=== PATIENT | female | born 1960 | race Caucasian/White ===

== ENCOUNTER 2017-05-05 12:11 | Inpatient (IN) ==
[2017-05-05 13:21] LABS: Basophils % 0.6 % (0.0-0.8); Eosinophils # 0.4 10*3/uL (0.0-0.87); Eosinophils % 5.6 % (0.00-10.9); Hematocrit 40.2 VOL% (35.7-47.0); Hemoglobin 13.9 GM/DL (12.0-16.0); Immature Granulocytes % 0.4 %; Immature Granulocytes Absolute 0.03 #; Lymphocytes # 2.3 10*3/uL (1.4-4.0); Lymphocytes % 32.4 % (21.3-54.2); Mean Corpuscular HGB Conc 34.6 GM/DL (32-36); Mean Corpuscular Hemoglobin 32 PG (27-34); Mean Corpuscular Volume 91.6 FL (87-102); Mean Platelet Volume 11.2 FL (9.6-12.0); Monocytes # 0.4 10*3/uL (0.11-0.8); Monocytes % 5.1 % (1.7-12.7); Neutrophils % 55.9 % (38.7-73.9); Platelet Count 232 T/CUMM (130-400); Red Blood Count 4.39 MC/CUMM (3.8-5.5); Red Cell Distribution Width 11.9 % (9.3-17.3); White Blood Count 7.2 T/CUMM (4-12)
[2017-05-05 13:43] LABS: Albumin 3.5 G/DL (3.4-5.0); Bilirubin,Total 0.4 MG/DL (0.2-1.0); Calcium 8.9 MG/DL (8.5-10.1); Osmolality,Calculated 277.4 MOS/KG (273-304); Potassium 4.3 MMOL/L (3.5-5.1); Total Protein 6.7 G/DL (6.4-8.3)
[2017-05-05 13:51] LABS: Apearance,Urine CLEAR (Clear); Bilirubin,Urine Negative (Negative); Blood, Urine Negative (Negative); Glucose,Urine (UA) Negative (Negative); Ketones,Urine Negative (Negative); Mucus,Urine Occasional /LPF (Occasional); Nitrite,Urine Negative (Negative); Protein,Urine Negative; RBC,Urine <1 /HPF (0-4); Squamous Epithelial Cell,Urine Occasional /HPF (0-10); Urine Color Straw (Yellow); Urine Specific Gravity 1.003 (1.001-1.035); Urine Urobilinogen < 2.0 EU/DL (0.2-1.0); WBC,Urine <1 /HPF (0-6)
[2017-05-05] MEDS ORDERED: SODIUM CHLORIDE 0.9% 1,000 ML IV STA (14:04)
[2017-05-05] MEDS ORDERED: ONDANSETRON 4 MG/2 ML VIAL IV STA (14:07)
[2017-05-05] MEDS ORDERED: ONDANSETRON 4 MG/2 ML VIAL ONE (14:10)
--- NOTE | 2017-05-05 14:19 | Ultrasound Report ---
Exam: US gallbladder Date:05/05/2017 1:23 PM Indication: Nausea right upper quadrant back pain abdominal pain Comparison: None Findings: Liver: 14 cm with no focal abnormalities. The hepatic and portal veins are patent. Gallbladder: Normal size and shape without obvious stones however positive sonographic Hopkins sign is present. Wall thickness is 1.5 mm which is normal CBD: 4 mm Pancreas: Visualized portion of pancreas is unremarkable. Kidneys Right kidney: 11.0 x 4.5 x 4.3 cm. Mild hydronephrosis is present. This appears chronic similar to prior studies. Ascites: None Impression: 1. Chronic hydronephrosis right renal collecting system with moderate hydronephrosis present. 2. No obvious cholelithiasis or acute cholecystitis present.. Some tenderness is present over the gallbladder with positive sonographic Hopkins sign If additional imaging is warranted hepatobiliary imaging may be beneficial with nuclear medicine and ejection fraction of the gallbladder Ultrasound images were stored and captured PROCEDURE INTERPRETED AT [facility] DEPARTMENT OF RADIOLOGY Final Report Signed by: Dr. Dean Temple
[2017-05-05 14:26] LABS: Troponin I Only < 0.015 NG/ML (0.00-0.045)
--- NOTE | 2017-05-05 14:31 | XRay Report ---
2 view chest 05/05/2017 2: 26 PM Indication: Chest wall and scapular pain Comparison: Not available Findings: Cardiomediastinal contours are normal. Lungs are clear bilaterally. . No acute osseous abnormalities. Visualized upper abdomen demonstrates no acute pathology. Impression: Normal chest PROCEDURE INTERPRETED AT [facility] DEPARTMENT OF RADIOLOGY Final Report Signed by: Luis Landin MD
--- NOTE | 2017-05-05 15:03 | Emergency Department Note ---
Arrival - Arrival Chief Complaint: Non-Specific Stated Complaint: back pain, RUQ pain, near syncope ED Nursing Triage Note: Patient with a complaint of right upper quadrant pain since Thursday; she reports diarrhea which resolved Thursday; she [place] [facility] [place] Grecia Bowers; she reports ambulating out of the examine room in the doe when she experienced a near syncopal episode. She reports "room spinning" and diaphoresis prior to the near syncopal episdode. Mode of Arrival: Stretcher Source: Patient Time Seen by Provider: 05/05/17 12:56 - History of Present Illness HPI Narrative: 57 y/o female presents to the ER complaining of nausea, dizziness, diaphoresis, and RUQ abdominal pain. Symptoms started on Thursday. She was seen by Grecia Bowers today at [facility] and had a near syncopal episode when she stood up to walk to the lab. When this episode occurred [facility] [place] EMS and patient was brought to the Emergency Room for further evaluation. Denies fever, vomiting, Chest pain, or diaphoresis. Past medical history significant for appendectomy, chronic pain , and interstitial cystitis. Primary Care Physician: Dr. Pascual. Onset (ago): day(s) (2) Severity: mild Quality: cramping Allergies/Adverse Reactions: Allergies Allergy/AdvReac Type Severity Reaction Status Date / Time sulfacetamide Allergy ANAPHYLAXIS Verified 05/05/17 13:16 [From Sulfamide] Review of System - Review of System 12 point system: reviewed and no additional remarkable complaints except as stated - Review of System Gastrointestinal: Present: abdominal pain (RUQ ), nausea, diarrhea Neurological: Present: other (dizziness/near syncope ) Medical,Surgical,& Family Hx - Medical History Respiratory: History of: Respiratory Problems (allergic rhinitis) Genitourinary: History of: Recurring Urinary Tract Infections (interstitial cystitis) - Surgical History Abdominal Surgeries: Surgical HX of: Appendectomy (ag of 14) - Family History Family History: Reports;: Family Cancer (thyroid cancer; paternal aunts breast cancer), Family Heart Disease (father), Family Hypertension (father), Family Stroke (father) - Social History Smoking Status: Never smoker Frequency of Alcohol Use: None Type of Drug Use: None Exam Vital Signs: Vital Signs Temperature 97.7 F 05/05/17 12:13 Pulse Rate 76 05/05/17 14:24 Respiratory Rate 20 05/05/17 12:13 Blood Pressure 131/81 05/05/17 14:24 O2 Sat by Pulse Oximetry 100 05/05/17 12:13 - General General appearance: alert, in no apparent distress - Eye Eye exam: Present: PERRL, EOMI - ENT ENT exam: Present: normal exam, normal oropharynx, mucous membranes moist - Chest Chest inspection: Present: normal inspection - Respiratory Respiratory exam: Present: normal lung sounds bilaterally - Cardiovascular Cardiovascular exam: Present: regular rate, normal rhythm, normal heart sounds - Abdominal Exam Abdominal exam: Present: soft, tenderness (RUQ ), normal bowel sounds, Hopkins's sign (positive ) - Extremities Exam Extremities exam: Present: normal inspection, full ROM - Back Exam Back exam: Absent: CVA tenderness (R), CVA tenderness (L) - Neurological Exam Neurological exam: Present: alert, oriented X3, CN II-XII intact, normal gait, reflexes normal. Absent: motor sensory deficit - Psychiatric Psychiatric exam: Present: normal affect, normal mood - Skin Skin exam: Present: warm, dry Course Course Narrative: Hospitalist group notified of Consult. - Consultations Consultation #1: Dr Barrios Time: 15:05 (Will order a Hida Scan ) Consultation #2: Dr. Barrios Time: 17:45 (Will admit to Dr. Barrios and consult Hospitalist ) Results - Labs CBC & BMP: 05/05/17 13:00 05/05/17 13:00 Lab Results: I have reviewed the patients labs - EKG EKG results: WNL - Impressions HIDA scan: Cholecystitis - Diagnostic Findings Procedure: Chest x-ray: image reviewed by me, report reviewed by me (WNL ), Ultrasound: image reviewed by me, report reviewed by me (RUQ: see dictated report. ) Disposition Clinical Impression: Cholecystitis, Nausea & vomiting Case discussed with: patient Disposition: Still a Patient Condition: Stable
--- NOTE | 2017-05-05 16:56 | Nuclear Medicine Report ---
Hepatobiliary Scan Date Performed: May 05, 2017 at 0604 hours Radiopharmaceutical: 5 mCi Tc-99m Mebrofenin I.V. Clinical Information: 57-year-old female with worsening abdominal pain Comparison: Gallbladder performed same date 1346 hours Technique: Sequential plain are 5 minute imaging obtained of the abdomen per routine hepatobiliary protocol Findings: Diffuse prompt uptake throughout the liver parenchyma with visualization of the common bile duct and gallbladder at the 15-20 minute interval. Bowel activity demonstrated at 20-25 minutes. Conclusion: Normal HIDA scan PROCEDURE INTERPRETED AT [facility] DEPARTMENT OF RADIOLOGY Final Report Signed by: Luis Landin MD
--- NOTE | 2017-05-05 16:59 | Order Completion Report ---
See report scanned to EMR
--- NOTE | 2017-05-05 18:46 | Hospitalist Consult Note ---
Assessment and Plan (1) Nausea & vomiting Status: Acute Assessment and plan: lap astrid in am Current Visit: Yes (2) Syncope Status: Acute Assessment and plan: orthostatic NS bolus in Er, repeat bolus Current Visit: Yes (3) Hydronephrosis, right Status: Acute Assessment and plan: cr normal, chronic found on US, outpatient Urology Current Visit: Yes History of Present Illness - Data of Consult Consult date: 05/05/17 Requesting Physician: William Barrios - Consult Narrative Reason for consult: syncope History of present illness: Ms. Conteh is a 57 year old female yo cf with no medical problems reports nausea since Thursday with associated right upper quadrant pain radiating to her back. She went to see Dr. Pascual today and got dizzy and lightheaded when she stood up. She sat down recovered a little stood up and started walking again and passed out. Patient was given a liter of fluids in the emergency room. We are asked to consult to clear her for surgery. Patient is low risk for surgery has no medical problems will sign off. CC: - Home Medications and Allergies Allergies/Adverse Reactions: Allergies Allergy/AdvReac Type Severity Reaction Status Date / Time sulfacetamide Allergy ANAPHYLAXIS Verified 05/05/17 13:16 [From Sulfamide] Medical,Surgical,& Family Hx - Medical History Respiratory: History of: Respiratory Problems (allergic rhinitis) Genitourinary: History of: Recurring Urinary Tract Infections (interstitial cystitis) - Surgical History HEENT Surgeries: Surgical HX of: Tonsilectomy & Adenoidectomy Abdominal Surgeries: Surgical HX of: Appendectomy (ag of 14) - Family History Family History: Reports;: Family Cancer (thyroid cancer; paternal aunts breast cancer), Family Heart Disease (father), Family Hypertension (father), Family Stroke (father) - Social History Smoking Status: Never smoker Frequency of Alcohol Use: None Type of Drug Use: None Marital Status: Lives With:: Spouse Functional capacity: independent ambulation - Constitutional Constitutional: Present: weight loss. Absent: fever(s), frequent falls, headache(s) - EENT Eyes: Absent: blurry vision, diplopia Ears: Absent: decreased hearing, ear discharge Nose, mouth and throat: Absent: headache(s), sore throat - Cardiovascular Cardiovascular: Absent: chest pain at rest, dyspnea - Respiratory Respiratory: Absent: cough, dyspnea - Gastrointestinal Gastrointestinal: Present: abdominal pain, bloating, diarrhea, nausea, vomiting - Genitourinary Genitourinary: Absent: difficulty urinating, dysuria - Musculoskeletal Musculoskeletal: Present: back pain - Neurological Neurological: Present: dizziness, syncope. Absent: frequent falls, headache(s) - Psychiatric Psychiatric: Absent: anxiety, depression - Endocrine Endocrine: Absent: cold intolerance, heat intolerance - Hematologic/Lymphatic Hematologic/Lymphatic: Absent: easy bleeding, easy bruising Exam - Constitutional Vitals: Period Temp Pulse Resp BP Sys/Krause Pulse Ox Last 24 Hr 97.7 F-97.7 F 74-93 20-20 123-158/73-95 100 General appearance: normal weight, no acute distress - Head Head exam: Present: normal inspection, normocephalic - Eye Eye exam: Present: EOMI. Absent: scleral icterus Pupils: Present: BEATRIS, normal accommodation - ENT ENT exam: Present: normal exam, normal external ear exam - Neck Neck exam: Absent: lymphadenopathy, thyromegaly - Respiratory Respiratory exam: Present: clear to auscultation bilaterally. Absent: rhonchi, wheezes - Cardiovascular Cardiovascular exam: Present: regular rate and rhythm. Absent: systolic murmur , tachycardia - GI/Abdominal GI/Abdominal exam: Present: normal bowel sounds, tenderness, soft - Extremities Exam Extremities exam: Present: normal inspection, normal capillary refill - Neurological Exam Neurological exam: Present: alert, oriented X3, reflexes normal. Absent: motor sensory deficit - Psychiatric Psychiatric exam: Present: normal affect, normal mood - Skin Skin exam: Present: normal color, warm Results - Labs CBC & BMP: 05/05/17 13:00 05/05/17 13:00 Lab Results: I have reviewed the past 24 hour labs - EKG EKG shows: sinus rhythm (No ST changes) - Diagnostic Findings Procedure: Chest x-ray: report reviewed by me (Nothing acute), Ultrasound: report reviewed by me (Gallbladder ultrasound shows no acute cholecystitis, chronic right hydronephrosis)
[2017-05-05] MEDS ORDERED: ONDANSETRON 4 MG/2 ML VIAL IV PRN (19:25)
[2017-05-05] MEDS ORDERED: MORPHINE 2 MG/1 ML SYRINGE IV PRN (19:25)
[2017-05-05] MEDS ORDERED: SODIUM CHLORIDE 0.9% 1,000 ML IV ONE (19:25)
[2017-05-05] MEDS ORDERED: PIPERACILLIN/TAZOBACTAM 3,375 MG in SODIUM CHLORIDE 0.9% 50 ML IV SCH (19:25)
[2017-05-05] MEDS: PIPERACILLIN/TAZOBACTAM 3,375 MG in SODIUM CHLORIDE 0.9% 100 ML IV SCH (22:35)
[2017-05-06] MEDS: PIPERACILLIN/TAZOBACTAM 3,375 MG in SODIUM CHLORIDE 0.9% 100 ML IV SCH ×3 (06:52→21:38)
[2017-05-06 06:55] LABS: Basophils # 0.1 10*3/uL (0.0-0.2); Basophils % 0.7 % (0.0-0.8); Eosinophils # 0.5 10*3/uL (0.0-0.87); Eosinophils % 6.2 % (0.00-10.9); Hematocrit 36.3 VOL% (35.7-47.0); Hemoglobin 12.2 GM/DL (12.0-16.0); Immature Granulocytes % 0.4 %; Immature Granulocytes Absolute 0.03 #; Lymphocytes # 2.3 10*3/uL (1.4-4.0); Lymphocytes % 30.6 % (21.3-54.2); Mean Corpuscular HGB Conc 33.6 GM/DL (32-36); Mean Corpuscular Hemoglobin 31 PG (27-34); Mean Corpuscular Volume 93.3 FL (87-102); Monocytes # 0.4 10*3/uL (0.11-0.8); Monocytes % 5.3 % (1.7-12.7); Neutrophils # 4.2 10*3/uL (1.4-7.4); Neutrophils % 56.8 % (38.7-73.9); Platelet Count 202 T/CUMM (130-400); Red Blood Count 3.89 MC/CUMM (3.8-5.5); White Blood Count 7.4 T/CUMM (4-12)
[2017-05-06 07:22] LABS: Bilirubin,Total 0.4 MG/DL (0.2-1.0); Calcium 7.8 MG/DL (8.5-10.1); Osmolality,Calculated 276.4 MOS/KG (273-304); Potassium 3.9 MMOL/L (3.5-5.1); Total Protein 5.6 G/DL (6.4-8.3)
[2017-05-06] MEDS: PANTOPRAZOLE 40 MG TABLET PO SCH (08:51)
--- NOTE | 2017-05-06 09:06 | General Surg History&Physical ---
Assessment and Plan (1) Cholecystitis Status: Acute Assessment and plan: I suspect cholecystitis in this patient which is likely chronic based on her history. She is receiving IV Zosyn at this time. We will proceed with left upper cholecystectomy today. Additional recommendations and postoperative planning pending intraoperative findings the patient's clinical progress Current Visit: Yes History of Present Illness Chief complaint: RUQ pain and nausea History of present illness: Ms. Conteh is a 57 year old female with no significant past medical history who presented to the emergency room yesterday after a syncopal episode associated with right upper quadrant pain for 3 days associated with nausea and diarrhea. In transit to this facility yesterday, she did experience a syncopal episode for which she has been evaluated by the hospitalist who suspected episode was associated with orthostasis. No contraindications to proceeding with any surgical intervention that is required. The patient reports intermittent bouts of right upper quadrant pain associated with nausea and diarrhea over the past 2 years which have become more frequent. She had made diet modifications and was actually no longer eating fried foods to help compensate. No previous evaluation had been performed. Home Medications Medication Instructions Recorded Confirmed Type Fluticasone Propionate 50 mcg BOTH NARES DAILY 05/06/17 05/06/17 History [Fluticasone 50 mcg Nasal [place]] RX: Cetirizine Tab [ZyrTEC Tab] 10 tablet PO DAILY 05/06/17 05/06/17 History RX: Estradiol Tab [Estrace Tab] 1 tablet PO DAILY 05/06/17 05/06/17 History RX: Imipramine [Tofranil] 25 tablet PO BEDTIME 05/06/17 05/06/17 History Allergies Allergy/AdvReac Type Severity Reaction Status Date / Time sulfacetamide Allergy ANAPHYLAXIS Verified 05/05/17 13:16 [From Sulfamide] Medical,Surgical,& Family Hx - Medical History Genitourinary: History of: Recurring Urinary Tract Infections (interstitial cystitis) Musculoskeletal: History of: Back/Neck Problems Other: History of: Miscellaneous Medical Problems (Allergic rhinitis) - Surgical History HEENT Surgeries: Surgical HX of: Tonsilectomy & Adenoidectomy Abdominal Surgeries: Surgical HX of: Appendectomy (ag of 14) Reproductive Surgeries: Surgical HX of;: Hysterectomy (partial in 1996) - Family History Family History: Reports;: Family Cancer (thyroid cancer; paternal aunts breast cancer), Family Heart Disease (father), Family Hypertension (father), Family Stroke (father) - Social History Smoking Status: Never smoker Frequency of Alcohol Use: None Type of Drug Use: None Exam - Constitutional Vitals: Period Temp Pulse Resp BP Sys/Krause Pulse Ox Last 24 Hr 97.1 F-97.7 F 65-93 15-20 111-158/64-95 96-100 General appearance: no acute distress - Head Head exam: Present: normal inspection - Eye Eye exam: Absent: scleral icterus - Respiratory Respiratory exam: Present: clear to auscultation bilaterally - Cardiovascular Cardiovascular exam: Present: RRR - GI/Abdominal GI/Abdominal exam: Present: normal bowel sounds, tenderness (Right upper quadrant), soft. Absent: distended, firm, guarding - Neurological Exam Neurological exam: Present: alert, oriented X3 Speech: Present: normal - Skin Skin exam: Present: normal color - Constitutional Constitutional: Absent: chills, fever(s) - Cardiovascular Cardiovascular: Absent: chest pain at rest, dyspnea on exertion - Gastrointestinal Gastrointestinal: Present: as per HPI - Genitourinary Genitourinary: Absent: dysuria Hematologic/Lymphatic: Absent: easy bleeding, easy bruising Quality Measures - VTE Contraindication to Pharmacological VTE Prophylaxis: High Risk of Bleeding Results - Labs CBC & BMP: 05/06/17 06:40 05/06/17 06:40 Lab Results: I have reviewed the past 24 hour labs Labs: HIDA scan with 7% ejection fraction; concerns for a calculus cholecystitis - Diagnostic Findings Procedure: Chest x-ray: image reviewed by me, report reviewed by me (No acute finding), Ultrasound: report reviewed by me (Gallbladder ultrasound did not reveal evidence of cholelithiasis or cholecystitis. Right upper quadrant tenderness noted with positive Hopkins sign)
[2017-05-06] MEDS ORDERED: FAMOTIDINE 20 MG TABLET PO ONE (09:19)
[2017-05-06] MEDS ORDERED: LIDOCAINE 1%/EPI INJ 20 ML VIAL ONE (09:23)
[2017-05-06] MEDS ORDERED: BUPIVACAINE 0.25% 50 ML VIAL ONE (09:23)
[2017-05-06] MEDS ORDERED: LACTATED RINGERS 1,000 ML IV SCH (09:30)
--- NOTE | 2017-05-06 11:43 | Fluoroscopy Report ---
Exam: [place] cholangiogram in surgery Date: 05/06/2017 Indication: Intraoperative cholangiogram Comparison: Nuclear medicine and gallbladder sonogram 05/05/2017 Findings: Possibly 10 cc of contrast was administered and 20 seconds fluoroscopy time with a single spot image which reveals the left and right biliary radicles and the common bile duct emptying into the duodenum with contrast in the proximal duodenum. No filling defects present. No extravasation of contrast noted Surgical clips are present. Fluoroscopy time provided to Dr. Yates. Impression: Normal intraoperative cholangiogram. PROCEDURE INTERPRETED AT [facility] DEPARTMENT OF RADIOLOGY Final Report Signed by: Dr. Dean Temple
--- NOTE | 2017-05-06 12:00 | Anesthesia Post-Op ---
Anesthesia Post OP - Post Ansesthetic Evaluation Patient seen in post op: Yes Resp: within normal limits CV: within normal limits Mental: within normal limits Temp: within normal limits [id number]: within normal limits Nausea and Vomiting: within normal limits Pain: within normal limits
[2017-05-06] MEDS ORDERED: PROPOFOL 200 MG/20 ML VIAL IV ONE (12:04)
[2017-05-06] MEDS ORDERED: SEVOFLURANE 1 UNIT/15 MINUTE INH ONE (12:04)
[2017-05-06] MEDS ORDERED: GLYCOPYRROLATE 0.4 MG/2 ML VIAL ONE (12:05)
[2017-05-06] MEDS ORDERED: fentaNYL 100 MCG/2 ML VIAL ONE (12:05)
[2017-05-06] MEDS ORDERED: HYDROmorphone 2 MG/1 ML VIAL ONE ×2 (12:05→12:10)
[2017-05-06] MEDS ORDERED: MIDAZOLAM 2 MG/2 ML VIAL ONE (12:05)
[2017-05-06] MEDS ORDERED: ePHEDrine 50 MG/ML AMP ONE (12:05)
[2017-05-06] MEDS ORDERED: ONDANSETRON 4 MG/2 ML VIAL ONE ×2 (12:05→12:11)
[2017-05-06] MEDS ORDERED: ACETAMINOPHEN 1,000 MG/100 ML VIAL IV ONE (12:06)
[2017-05-06] MEDS ORDERED: ROCURONIUM 100 MG/10 ML VIAL IV ONE (12:06)
[2017-05-06] MEDS: HYDROmorphone 2 MG/1 ML VIAL IV PRN ×4 (12:13→12:28)
--- NOTE | 2017-05-06 12:14 | Operative Note ---
Date of procedure: 05/06/17 Pre-op diagnosis: Chronic cholecystitis, abnormal appearing liver Post-op diagnosis: same Procedure: Procedure performed: #1 laparoscopic cholecystectomy with intraoperative cholangiogram #2 laparoscopic wedge liver biopsy Procedure in detail: After informed consent was obtained, the patient was taken operating suite lies upon the operating table. After general anesthesia was induced abdomen was prepped and draped in usual sterile fashion. After procedural pause local anesthetic infiltrated in the skin and subcutaneous tissue just below the umbilicus. Incision was made and dissection carried down through skin and soft tissue. The fascia identified and grasped with Bryce's and elevated fascial incision was made in the abdominal cavity was entered bluntly. Finger sweep revealed no adhesions. Booker trocar was placed under direct visualization. Pneumoperitoneum achieved. The camera inserted and bowel mesentery were inspected and found to be free of any violation. Next the patient was placed in reverse Trendelenburg position rotated to the left. 2 5 mm trochars were placed in the right upper quadrant 11 mm subxiphoid trocar was placed all under visualization. The gallbladder identified. Had some changes consistent with mild chronic cholecystitis. Near the gallbladder on the inferior edge of the liver there was areas of what appeared to be scarring or platelike tumor. The gallbladder was retracted superiorly. Infundibulum the gallbladder retracted toward the right hip. Dissection carried out from lateral to medial approach and the triangle of Manda. The cystic duct and cystic artery were identified and isolated. The common bile duct was easily visible though no dissection was performed in this area. A clip was placed the junction of the cystic duct neck of the gallbladder and partial transection made on the cystic duct. Cholangiocatheter inserted and secured in place. Intraoperative glandular and performed. Catheter appeared to be coursing through the cystic duct. The common bile duct intra-and extrahepatic ducts filled with no filling defects identified. Contrast seen entering small bowel. The cholangiocatheter was removed and 2 clips placed on the cystic duct just distal to the partial transection the transection completed. Cystic artery was triple clipped and transected how long the gallbladder wall. The gallbladder was then removed from the gallbladder fossa using hook cautery and placed in Endo Catch sac. There was no obvious tumor and the plane appeared normal between the gallbladder and liver. Scissors were used to perform a wedge biopsy of the inferior edge of the liver. Hemostasis obtained with spot electrocautery. The wedge liver biopsy was placed in the Endo Catch sac and both were removed through the Booker trocar site. Both were sent to pathology. Pneumoperitoneum reachieved. The right upper quadrant was thoroughly irrigated and suctioned. There is excellent hemostasis. The clips were inspected found to be intact no leakage of bilious or sanguinous fluid. All irrigant remained clear and was suctioned. The trochars were removed as the abdomen desufflated. Fascia at the Booker trocar site closed using 0 Vicryl [id number] interrupted suture. Wounds were thoroughly irrigated and suctioned the deep dermal layer were closed with 3-0 Vicryl. 4-0 Monocryl used to close the skin. Sterile dressings applied. The patient was explained taken recovery room in stable condition. All lap and needle counts were correct at the end of the case. Anesthesia: GETA Surgeon / Physician: William Barrios Estimated blood loss: other (Less than 10 cc) Specimens: other (Gallbladder, wedge biopsy of liver) Condition: stable Disposition: PACU Results - Labs CBC & BMP: 05/06/17 06:40 05/06/17 06:40 Discharge Plan - Discharge Medications No Action Estradiol Tab [Estrace Tab] 1 tablet PO DAILY Imipramine [Tofranil] 25 tablet PO BEDTIME Fluticasone Propionate [Fluticasone 50 mcg Nasal [place]] 50 mcg BOTH NARES DAILY Cetirizine Tab [ZyrTEC Tab] 10 tablet PO DAILY - Follow Up or Referral - Forms/Instructions
[2017-05-06] MEDS ORDERED: ONDANSETRON 4 MG/2 ML VIAL IV PRN (12:15)
[2017-05-06] MEDS ORDERED: PROMETHAZINE 25 MG/1 ML VIAL IM PRN (15:26)
[2017-05-06] MEDS: ONDANSETRON 4 MG/2 ML VIAL IV PRN ×2 (16:05→20:05)
[2017-05-06] MEDS ORDERED: IMIPRAMINE 25 MG TABLET PO SCH (21:00)
[2017-05-07] MEDS: PIPERACILLIN/TAZOBACTAM 3,375 MG in SODIUM CHLORIDE 0.9% 100 ML IV SCH (06:36)
[2017-05-07] MEDS: PANTOPRAZOLE 40 MG TABLET PO SCH (08:38)
[2017-05-07] MEDS ORDERED: CETIRIZINE 10 MG TABLET PO SCH (09:00)
[2017-05-07] MEDS ORDERED: ESTRADIOL 2 MG TABLET PO SCH (09:00)
[2017-05-07] MEDS ORDERED: FLUTICASONE 50 MCG NASAL SPRAY 16 GM BOTTLE BOTH NARES SCH (09:00)
[2017-05-07] MEDS ORDERED: ACETAMINOPHEN 325 MG TABLET PO PRN (09:18)
--- NOTE | 2017-05-07 09:42 | Discharge Summary ---
Hospital Course - Hospital Course Hospital Course: The patient is a 57-year-old female with no significant past medical history who was admitted with right upper quadrant pain with signs and symptoms of chronic cholecystitis for which she underwent laparoscopic cholecystectomy with intraoperative cholangiogram with Dr. Dr. Barrios on 05/06/2017. Preoperatively , hospitalist consultation was obtained as the patient suffered a syncopal episode which was determined to be orthostasis in route to the hospital. Intraoperatively, the inferior edge of the liver was noted to have an abnormal appearance and a wedge biopsy was performed. Biopsies were pending at the time of discharge. Postoperatively, the patient experienced nausea and initially required overnight stay. By the morning, she was significantly improved and tolerating a regular diet without abdominal pain, nausea or vomiting. Her pain was well-controlled, she was passing flatus, and she was voiding without difficulty. She was discharged home in good condition with follow-up with Dr. Barrios as well as postoperative instructions. Diagnosis - Discharge Diagnosis (1) Cholecystitis Status: Acute (2) Abnormal liver diagnostic imaging Status: Acute (3) Syncope Status: Acute Specialty Discharge - Follow Up or Referrals Follow up with: William Barrios MD [Physician] - 05/25/17 9:15 am Discharge Plan - Discharge Data Disposition: Disch To Home/Self Care Condition at Discharge: Stable Discharge Diet: advance to your usual diet Activity: no lifting (Greater than 10 pounds) Hygiene: may shower (Beginning second day after surgery) Driving: other (No driving while taking narcotics) Contact your physician if you experience:: fever over 101, Redness or swelling, Nausea/Vomiting, Shortness of breath, pain uncontrolled by pain medications Wound / Dressing Care Instructions: Keep surgical site incisions clean and dry. Do not soak or submerge incisions. Pat incisions dry. - Discharge Medications New Acetaminophen Tab [Tylenol Tab] 650 mg PO Q4H PRN tablet PRN Reason: Pain Ondansetron Tab [Zofran Tab] 4 mg PO Q4H PRN #20 tablet PRN Reason: Nausea HYDROcodone/ACETAMIN 7.5-325 [Parks 7.5-325] 1 tablet PO Q4H PRN #20 tablet PRN Reason: Pain Moderate To Severe (4-10) Continue Estradiol Tab [Estrace Tab] 1 tablet PO DAILY Imipramine [Tofranil] 25 tablet PO BEDTIME Fluticasone Propionate [Fluticasone 50 mcg Nasal [place]] 50 mcg BOTH NARES DAILY Cetirizine Tab [ZyrTEC Tab] 10 tablet PO DAILY - Follow Up or Referral Follow Up: William Barrios MD [Physician] - 05/25/17 9:15 am - Forms/Instructions Instructions: Laparoscopic Cholecystectomy (DC) Exam - Constitutional Vitals: Period Temp Pulse Resp BP Sys/Krause Pulse Ox Last 24 Hr 96.8 F-98.0 F 63-94 16-20 142-164/74-89 90-100 General appearance: no acute distress - Head Head exam: Present: normocephalic - Eye Eye exam: Absent: scleral icterus - Respiratory Respiratory exam: Present: clear to auscultation bilaterally - Cardiovascular Cardiovascular exam: Present: regular rate and rhythm - GI/Abdominal GI/Abdominal exam: Present: hypoactive bowel sounds, tenderness (Appropriate postoperative tenderness), soft, other (Surgical incisions are clean, dry and intact). Absent: distended, firm - Extremities Exam Extremities exam: Absent: calf tenderness, edema - Neurological Exam Neurological exam: Present: alert, oriented X3 - Psychiatric Psychiatric exam: Present: normal affect, normal mood - Skin Skin exam: Present: normal color Discharge Results Procedures and tests throughout hospitalization: Date of admission 05/05/2017 Chest x-ray no acute findings Gallbladder ultrasound: Chronic hydronephrosis of the right renal collecting system present and unchanged; positive sonographic Hopkins sign without evidence of cholelithiasis or acute cholecystitis. HIDA scan: Ejection fraction 7% 05/06/2017: Left scopic cholecystectomy with intraoperative cholangiogram and liver wedge biopsy with Dr. Barriso Pathology pending at the time of discharge of gallbladder and liver DS: Provider Date of admission: 05/05/17 17:51 Primary care physician: Indra Pepe Attending physician on admission: William Barrios MD Consults: 05/05/17 19:25 Consult to Physician [CONS] Routine Comment: Near syncope; clear for surgery Consulting Provider: Edwardo Strauss Consulting Provider Notified: Yes When should Consulting Provider be notified: Now Person Notified: Dr Elias called Date Notified: 05/05/17 Time Notified: 20:25 Consult Notification Comment: Dr Elias said she was cleared for surgery and she noted it. 05/05/17 22:15 Consult to Pastoral Services [CONS] Routine Comment: Pastoral Screen: Request Data Network Architect Visit Pastoral Screen Source of Request: Patient Discharging clinician: Syl Tolentino PA-C
[2017-05-07 14:24] VITALS: BP 146/80
--- NOTE | 2017-05-08 18:17 | Pathology Report from [facility] ---
[facility] [place] ACCESSION # : [id number] PATIENT NAME : Sindy Gaitan ORDERING DR : William Barrios MD CLINICAL HX: Cholecystitis POST-OP DX: Same SPECIMEN INFO: #1 Gallbladder #2 Liver biopsy GROSS DESCRIPTION: #1 GALLBLADDER consists of an intact gallbladder measuring 9.2 x 3.8 cm. The serosa is smooth and peñaloza-pink. The wall averages 0.3 cm in thickness. The mucosal surface is velvety and pink-vann. The lumen is filled with yellow bile with no stones seen. Jewelry Setter sections submitted in cassette #1.#2 LIVER BX consists of a 1.7 x 0.8 cm vann tissue fragment. Sectioned and submitted in cassette #2. DIAGNOSIS FOR SINDY GAITAN: #1 GALLBLADDER, CHOLECYSTECTOMY: Acute and chronic cholecystitis.#2 LIVER, BIOPSY: Benign liver parenchyma, including hepatocytes and adjacent bile duct epithelium, with mild chronic inflammation. No tumor seen. COLLECTED DATE: 05/06/2017 [facility] REPORT DATE: 05/08/2017 ELECTRONICALLY SIGNED BY: Mishel Blanco M.D. 05/08/2017 - 13:27:46 [facility]ITALAddison
== END 2017-05-07 13:12 | disposition home or self-care (01) | DRG 418 ==
LOC: EDUNIT# → N.ED 12:11 → N.EDINP 17:51 → N.3E 19:07
PROVIDERS: ADMIT Surgery; ATTEND Surgery
PROC: LAPCHOL (2017-05-06 10:22)